=== PATIENT | female | born 1975 | race Caucasian/White ===

== ENCOUNTER 2018-11-24 19:34 | Emergency (ER) | payer OTHER ==
[2018-11-24 19:49] VITALS: BP 154/85
--- NOTE | 2018-11-24 20:28 | ER Document Report ---
ED Wound - General Chief Complaint: Laceration Stated Complaint: FINGER LACERATION Time Seen by Provider: 11/24/18 20:21 Mode of Arrival: Ambulatory Information source: Patient Notes: 43 Yr old female pt, with the listed pmh, here for a small superficial laceration to her left index finger x a few hours. she is right handed. states accidentally cut it with a new knife. knife remained intact. no intentional self harm. No numbness, weakness or tingling. Pain worse with movement, better with rest. No pain anywhere else. last TDAP > 5yrs ago. no acute blood loss sx. no intoxication. no blood thinners. no head injury. pt able to walk. acting baseline. no preceding injury sx. no cuts any where else. no surgeries on this hand. No other complaints at this time. TRAVEL OUTSIDE OF THE [place] IN LAST 30 DAYS: No - HPI Patient complains to provider of: Laceration Occurred: Just prior to arrival Onset/Duration: Sudden Quality of pain: Achy Severity: Mild Pain Level: 2 Capillary refill: < 3 seconds Sensations intact: Yes Distal pulses present: Yes - Related Data Allergies/Adverse Reactions: No Known Allergies Allergy (Unverified 11/24/18 20:15) Past Medical History - General Information source: Patient - Social History Smoking Status: Never Smoker Frequency of alcohol use: Occasional Drug Abuse: None Lives with: Family Family History: Reviewed & Not Pertinent Patient has suicidal ideation: No Patient has homicidal ideation: No Renal/ Medical History: Denies: Hx Peritoneal Dialysis Psychiatric Medical History: Reports: Hx Depression Infectious Medical History: Reports: None - Immunizations Immunizations up to date: Yes Hx Diphtheria, Pertussis, Tetanus Vaccination: No Review of Systems - Review of Systems -: Yes All other systems reviewed and negative - to include 10 systems, unless mentioned in the hpi Physical Exam - Vital signs Vitals: Temp Pulse Resp BP Pulse Ox 98.5 F 73 15 154/85 H 97 11/24/18 19:48 11/24/18 19:48 11/24/18 19:48 11/24/18 19:48 11/24/18 19:48 Interpretation: Normal Notes: GENERAL_APPEARANCE: well_nourished, alert, cooperative, no obvious discomfort. pleasant, middle aged obese white female, smiling, speaking in full sentences, easily sitting up, in no sign of pain or resp distress, mother at bedside VITALS: WNL. HEAD: no_swelling\tenderness on the head, no_abrasions\lacerations on the head. normocephalic, atraumatic. no welch signs. no raccoon eyes HEART: RRR LUNGS: CTAB, good air exchange diffusely. EXTREMITIES: full rom. full strength. normal gait. good pulse in all extremities, 0.5cm superficial linear laceration on the distal lateral fat pad of the left index finger- doesn't involve the nail. superficial. no subungual hematoma. neg kanavel sign, exploration of wound showed no FB. Brisk cap refill. 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 no sign of tendon or nerve involvement. no drainage, streaking, induration, fluctuation, or bleeding. normal gait. SKIN: warm, dry, good_color. no rash or sign of cellulitis. NEURO: motor_intact and sensory_intact in injured_extremity. MENTAL_STATUS: speech_clear, oriented_X_3, responds_appropriately to questions. 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 left fingers xr was neg per rad and reviewed by myself. pt informed of her findings. her tdap was updated. she was pain controlled. the small laceration was very minor and superficial and closed easily with steri- strips and dermabond without complication. pt placed in a nonstick dressing and also a finger splint in full extension to wear as needed for comfort for the next few days. advised wound care. otc meds for pain. advised to monitor for signs of infection. advised to f/u with pcp in 1-2 days. return for any worsening symptoms. vss. well appearing. satting well on ra. neurononfocal. pt understands and agrees to plan. On reexam, pt improved with tx listed. remained stable. nontoxic. well appearing. pain controlled. tolerating po. requesting to go home. neurononfocal. Documentation achieved through voice recording which my lead to some occasional accidental typographical errors. Extensive efforts have been made to proof read documentation to make sure these are the least as possible. 11/24/18 22:52 Category Date Time Status Dermabond (ED) NOW Care 11/24/18 20:44 Ordered Steri-strips (ED) NOW Care 11/24/18 20:45 Ordered Left Finger [FINGER LEFT] [RAD] Stat Exams 11/24/18 20:21 Completed Acetaminophen [Tylenol 325 mg Tablet] Med 11/24/18 20:47 Once 975 mg PO NOW ONE Benzoin/Aloe Vera/Storax/[place] [Benzoin Compound Med 11/24/18 20:47 Once Tincture 60 ml] 1 applic TP STAT ONE Diph,Pertuss(Acell),Tet Vac/Pf [Boostrix Vaccine 0.5 ml Med 11/24/18 20:43 Once Syringe] 0.5 ml IM NOW ONE - Vital Signs Vital signs: Temp Pulse Resp BP Pulse Ox 98.5 F 73 15 154/85 H 97 11/24/18 19:48 11/24/18 19:48 11/24/18 19:48 11/24/18 19:48 11/24/18 19:48 11/24/18 22:53 Temp Pulse Resp BP Pulse Ox 11/24/18 19:48 98.5 F 73 15 154/85 H 97 - Diagnostic Test Radiology reviewed: Image reviewed, Reports reviewed Radiology results interpreted by me: 11/24/18 22:56 Finger X-Ray 11/24/18 20:21 IMPRESSION: No acute fracture or foreign body. Procedures - Laceration/Wound Repair Left Finger 2nd digit Time completed: 20:45 Wound length (cm): 0.5 Wound's Depth, Shape: Superficial, Linear Laceration pre-procedure: Sterile PPE donned, Betadine prep applied Volume Anesthetic (mLs): 0 Wound explored: Clean Irrigated w/ Saline (mLs): 60 Wound Repaired With: Steri-strips - with benzoin, Dermabond - dermabond initially placed to approximate the borders of the small laceration and given its location and potential for dehiscience i did apply benzoin a small amt away from the laceration opening on each side and attach steri-strips across the laceration with the dermabond in the middle and benzoin on each side. pt consented to procedure. procedure without incident. wound edges well approximated. hemostasis achieved with minimal to no blood loss. risk vs benefits of sutures vs steri-strips/dermabond discussed with the pt and she elected for dermabond/steri-strips. her finger was then dressed after the lac repair in a nonstick dressing and finger splint in full extension. Layer Closure?: No Post-procedure wound care: Sterile dressing applied, Splint applied - finger splint in full extension Post-procedure NV exam normal: Yes Complications: No Discharge - Discharge Clinical Impression: Need for Tdap vaccination Finger laceration Qualifiers: Encounter type: initial encounter Finger: index finger Damage to nail status: without damage Foreign body presence: without foreign body Laterality: left Qualified Code(s): S61.211A - Laceration without foreign body of left index f viry without damage to nail, initial encounter Condition: Good Disposition: HOME, SELF-CARE Instructions: Laceration Care ([facility]), Tetanus Immunization Given ([facility]) Additional Instructions: Follow-up with PCP in 1 to 2 days. Return for any worsening symptoms. wound care as discussed. keep area clean and dry. let steri strips and dermabond fall off on their own. tylenol as needed for any pain. wear the splint for the next day or so as needed for comfort. monitor for signs of infection.
[2018-11-24] MEDS ORDERED: DIPH/PERTUSS(ACELL)/TETANUS VAC/PF 0.5 ML SYR (>=10YO) IM ONE (20:43)
[2018-11-24] MEDS ORDERED: ACETAMINOPHEN 325 MG TABLET PO ONE (20:47)
[2018-11-24] MEDS ORDERED: BENZOIN/ALOE VERA/STORAX/TOLU TINCTURE 60 ML TP ONE (20:47)
--- NOTE | 2018-11-24 21:09 | RADIOLOGY REPORT (SQ) ---
3 VIEWS OF LEFT SECOND DIGIT. EXAM DATE: 11/24/2018 8:21 PM CDT HISTORY: laceration. COMPARISON: None. FINDINGS: No acute fracture or dislocation is seen. The joint spaces are preserved. There is diffuse soft tissue swelling of the second digit. No radiopaque foreign body is identified. IMPRESSION: No acute fracture or foreign body.
== END 2018-11-24 23:10 | disposition home or self-care (01) ==
LOC: EDBD → ER 19:34
PROC: 0HQGXZZ Repair Left Hand Skin, External Approach (ICD-10-PCS; principal; 2018-11-24)
DX: Z23 Encounter for immunization (principal); S61.211A Laceration without foreign body of left index finger without damage to nail, initial encounter; W26.0XXA Contact with knife, initial encounter
CPT/HCPCS: 90471; 90715; 99283; J3490